=== PATIENT | female | born 1965 | race Caucasian/White ===

== ENCOUNTER 2016-09-05 05:53 | Observation (INO) | payer OTHER ==
[~2016-09-05] VITALS: Ht 154.9 cm; Wt 90.6 kg
[2016-09-05] VITALS (20 sets, daily range): BP systolic 105–149; BP diastolic 60–81; PULSE 81–92; RESP 14–25; Ht 154.9 cm; Wt 90.6 kg
[~2016-09-05 05:53] MED LIST: MED FOR HTN
[2016-09-05] MEDS ORDERED: LACTATED RINGER'S 1,000 ML IV SCH (06:00)
[2016-09-05] MEDS ORDERED: EPHEDrine SULFATE 50 MG/5 ML SYG ONE (07:00)
[2016-09-05 07:22] LABS: ABNORMAL IP MESSAGE 1; HEMATOCRIT 25.2 % (37.0-47.0); MEAN CORPUSCULAR HEMOGLOBIN 17.5 pg (29.0-33.0); MEAN CORPUSCULAR HGB CONC 26.6 g/dl (32.0-37.0); MEAN PLATELET VOLUME 8.8 fl (7.4-10.4); NUCLEATED RED BLOOD CELLS% 0.4 /100WBC (0.0-0.0); PLATELET COUNT 535 10^3/UL (140-415); RED BLOOD COUNT 3.82 10^6/ul (4.20-5.40); RED CELL DISTRIBUTION WIDTH 17.6 % (11.5-14.5); WHITE BLOOD COUNT 5.6 10^3/ul (4.8-10.8)
[2016-09-05 07:33] LABS: POSITIVE DIFF @See below
[2016-09-05 07:37] LABS: HEMOGLOBIN 6.7 g/dl (12.0-16.0)
[2016-09-05 07:45] LABS: ALBUMIN 3.9 g/dl (3.3-4.9); ALBUMIN/GLOBULIN RATIO 0.81; BILIRUBIN,INDIRECT 0.3 mg/dl (0-1.1); BILIRUBIN,TOTAL 0.3 mg/dl (0.2-1.3); TOTAL PROTEIN 8.7 g/dl (6.1-8.1)
[2016-09-05 08:02] LABS: CREATININE 0.51 mg/dl (0.44-1.00)
--- NOTE | 2016-09-05 10:24 | OPR ---
Date/Time of Note Date/Time of Note DATE: 09/05/16 TIME: 10:22 Operative Report Preoperative Diagnosis Abnormal Uterine Bleeding Postoperative Diagnosis Same Operation/Procedure Performed Dilation and Curettage Surgeon: JELANI FRIED MD Anesthesia: general Estimated Blood Loss: minimal Specimens Endocervical curetting and endometrial curetting Complications: None JELANI FRIED MD Sep 05, 2016 10:24
[2016-09-05] MEDS ORDERED: FENTAnyl 50 MCG/ML VIAL IV PRN (10:30)
[2016-09-05] MEDS ORDERED: HYDROmorphONE (0.2 MG/ML) 10ML SYG IV PRN (10:30)
[2016-09-05] MEDS ORDERED: DIPHENHYDRAMINE 50 MG INJ IV PRN (10:30)
[2016-09-05] MEDS ORDERED: PROCHLORPERAZINE 10 MG INJ IV PRN (10:30)
[2016-09-05] MEDS ORDERED: MEPERIDINE 25 MG INJ IV PRN (10:30)
[2016-09-05] MEDS ORDERED: OXYCODONE/ACETAMINOPHEN (5/325) TAB PO PRN (10:30)
[2016-09-05] MEDS ORDERED: ONDANSETRON 4 MG INJ IV PRN (10:30)
[2016-09-05 10:56] LABS: ANISOCYTOSIS 3+ (0-0); EOSINOPHILS % (M) 9 % (0-7); GIANT THROMBO% (M) 7 % (0-0); HYPOCHROMASIA 3+ (0-0); MICROCYTOSIS 3+ (0-0); MONOCYTES % (M) 4 % (0-11); PLATELET ESTIMATE INCREASED; POLYCHROMASIA 3+ (0-0)
[2016-09-05 11:40] LABS: ABNORMAL IP MESSAGE 1; BASOPHILS % 0.6 % (0.0-2.0); EOSINOPHILS # 0.4 10^3/ul (0.0-0.5); EOSINOPHILS % 7.6 % (0.0-7.0); HEMATOCRIT 25.6 % (37.0-47.0); HEMOGLOBIN 7.1 g/dl (12.0-16.0); LYMPHOCYTES # 2.2 10^3/ul (0.8-2.9); LYMPHOCYTES % 39.7 % (15.0-51.0); MEAN CORPUSCULAR HGB CONC 27.7 g/dl (32.0-37.0); MEAN CORPUSCULAR VOLUME 68.4 fl (82.0-101.0); MEAN PLATELET VOLUME 8.9 fl (7.4-10.4); MONOCYTE # 0.4 10^3/ul (0.3-0.9); MONOCYTES % 7.6 % (0.0-11.0); NEUTROPHIL # 2.4 10^3/ul (1.6-7.5); NEUTROPHILS % 43.9 % (39.0-77.0); PLATELET COUNT 470 10^3/UL (140-415); RED BLOOD COUNT 3.74 10^6/ul (4.20-5.40); RED CELL DISTRIBUTION WIDTH 19.3 % (11.5-14.5); WHITE BLOOD COUNT 5.4 10^3/ul (4.8-10.8)
[2016-09-05 11:41] LABS: POSITIVE DIFF @See below
--- NOTE | 2016-09-06 05:42 | PREOPHP ---
DATE OF ADMISSION: 09/05/2016 HISTORY OF PRESENT ILLNESS: This is a 50-year-old female, 2, para 2, last menstrual period August 21, 2016, resented with history of heavy menstrual periods. PAST MEDICAL HISTORY: Unremarkable. PAST SURGICAL HISTORY: Shoulder surgery. FAMILY HISTORY: Hypertension. ALLERGIES: NO KNOWN ALLERGIES. PHYSICAL EXAMINATION: VITAL SIGNS: Patient is afebrile. Vital signs stable. HEAD, NECK, AND CHEST: Within normal limits. ABDOMEN: Soft, nontender, and nondistended. PELVIC: Uterus is enlarged. NEUROLOGIC: Within normal limits. WORKUP ON ADMISSION: Included a CBC which gave a hemoglobin of 6.7. IMPRESSION: 1. Abnormal uterine bleeding. 2. Severe anemia. PLAN: The plan is admit. Transfuse 1 unit of packed red blood cells and then dilatation and curettage. The risks, benefits, and alternatives of the procedure and blood transfusion were explained to the patient. The patient said she understood and gave informed consent for receiving a blood transfusion and having the procedure. Dictated By: Jet Lal MD /deyvi/april /Document#: [id number]
--- NOTE | 2016-09-06 05:47 | OPR ---
DATE OF OPERATION: 09/05/2016 PREOPERATIVE DIAGNOSIS: Abnormal uterine bleeding. POSTOPERATIVE DIAGNOSIS: Same. Operation endocervical curettage, dilation and endometrial curettage. SURGEON: Dr. Lal. ANESTHESIA: General. Anesthesiologist Dr. Goetz. OPERATION PERFORMED: Patient was taken to the operating room, placed on the operating table in supine position after adequate anesthesia was given. The patient was placed in dorsal lithotomy position and there was prepared and draped in the usual sterile fashion. The spectrum was placed inside the vagina and the anterior lip of the cervix. Using a Kevorkian curette, endocervical curettage was performed. Specimen obtained was sent to pathology. Next, using cervical dilators, cervix was dilated using a sharp curette. Endometrial curettage was performed. Specimen obtained was sent to pathology. All the instruments were removed. Adequate hemostasis was assured. The patient tolerated the procedure well. Patient was awakened from anesthesia and transferred to room stable in condition. ESTIMATED BLOOD LOSS: Minimal. COMPLICATIONS: None. Dictated By: Jet Lal MD /deyvi/perry /Document#: [id number]
--- NOTE | 2016-09-06 09:01 | RADRPT ---
Vent Rate: 79 bpm RR Interval: 0 msec PA Interval: 138 msec QRS Duration: 80 msec QT Interval: 390 msec QTC Interval: 447 msec P-R-T [place]: 23 - 23 - 31 degrees Normal sinus rhythm Low voltage QRS Borderline ECG Electronically Signed By: Jim Wilder [id number]
[2016-09-06] MEDS ORDERED: PROPOFOL 20 ML ONE (18:02)
[2016-09-06] MEDS ORDERED: LIDOCAINE 2% (SDV) 5 ML INJ ONE (18:02)
[2016-09-06] MEDS ORDERED: FENTAnyl 50 MCG/ML VIAL ONE (18:02)
[2016-09-06] MEDS ORDERED: MIDAZOLAM 1 MG/ML 2 ML INJ ONE (18:02)
[2016-09-06] MEDS ORDERED: FAMOTIDINE 20 MG INJ ONE (18:02)
[2016-09-06] MEDS ORDERED: DEXAMETHASONE 4 MG/ML 1 ML INJ ONE (18:02)
[2016-09-06] MEDS ORDERED: ONDANSETRON 4 MG INJ ONE (18:02)
[2016-09-06] MEDS ORDERED: CEFAZOLIN 1 GM INJ ONE (18:02)
== END 2016-09-05 12:30 | disposition home or self-care (01) ==
LOC: SDS 05:53 → PP2 08:13 → REC 10:09
PROVIDERS: ADMIT Obstetrics & Gynecology; ATTEND Obstetrics & Gynecology
DX: N84.0 Polyp of corpus uteri (principal); N87.9 Dysplasia of cervix uteri, unspecified; N93.9 Abnormal uterine and vaginal bleeding, unspecified; D64.9 Anemia, unspecified; I10 Essential (primary) hypertension; E66.9 Obesity, unspecified; Z68.37 Body mass index [BMI] 37.0-37.9, adult
CPT/HCPCS: 36430; 58120; 80053; 84703; 85025; 86850; 86900; 86901; 86920; 88305; 93005; P9016; Z7500; Z7512; Z7610; G0378; J0690; J1100; J2250; J2405; J3010

== ENCOUNTER 2016-12-20 08:27 | Observation (INO) | END 2016-12-22 16:46 | disposition home or self-care (01) | DX: N92.1 Excessive and frequent menstruation with irregular cycle (principal); D25.9 Leiomyoma of uterus, unspecified; E66.01 Morbid (severe) obesity due to excess calories; Z68.35 Body mass index [BMI] 35.0-35.9, adult | CPT/HCPCS: 36430; 58544; 80048; 80053; 84703; 85025; 86850; 86900; 86901; 86920; 87086; 88305; J0690; J1100; J1170; J1885; J2250; J2270; J2405; J3010; J3480; J7030; J7120; P9016; Z7500; Z7512; Z7610 ==

== ENCOUNTER 2018-09-06 17:11 | Emergency (ER) | payer OTHER ==
[~2018-09-06] VITALS: Ht 154.9 cm; Wt 88.9 kg
[2018-09-06 17:47] VITALS: Ht 154.9 cm; Wt 88.9 kg
--- NOTE | 2018-09-06 18:52 | ERD ---
ER Documentation Chief Complaint Chief Complaint Referred by PCP for lower abdominal pain r/o diverticulitis HPI Patient is a 52-year-old female presenting to the ED from her primary care provider Dr. Brittny Sanchez who has concerns for diverticulitis. The patient is presenting afebrile, pulse 106, BP 162/98. The patient states she has left lower abdominal pain and is been going on for the past few days. Patient denies nausea vomiting diarrhea. Patient denies recent surgeries. Patient states her only past medical his diabetes. Patient states this is never happened to her before ROS All systems reviewed and are negative except as per history of present illness. Medications Home Meds Active Scripts Lactobacillus Rhamnosus* (Culturelle*) 1 Each Cap.sprink, 1 CAP PO BID for 30 Days, CAP Prov:ANNA CORTEZ PA-C 09/06/18 Psyllium Seed* (Metamucil* Powder) 1,040 Gm Powder, 10 GM PO TID for 10 Days, EA Prov:ANNA CORTEZ PA-C 09/06/18 Metronidazole* (Flagyl*) 500 Mg Tablet, 500 MG PO TID for 7 Days, TAB Prov:ANNA CORTEZ PA-C 09/06/18 Ciprofloxacin Hcl* (Ciprofloxacin Hcl*) 500 Mg Tablet, 500 MG PO BID for 7 Days, TAB Prov:ANNA CORTEZ PA-C 09/06/18 Allergies Allergies: Coded Allergies: No Known Allergy (Unverified , 12/20/16) PMhx/Soc History of Surgery: Yes (arm sx) Anesthesia Reaction: No Hx Neurological Disorder: No Hx Respiratory Disorders: No Hx Cardiac Disorders: No Hx Psychiatric Problems: No Hx Miscellaneous Medical Probl: No Hx Alcohol Use: No Hx Substance Use: No Hx Tobacco Use: No Smoking Status: Never smoker FmHx Family History: diabetes Physical Exam Vitals Vital Signs Date Temp Pulse Resp B/P (MAP) Pulse Ox O2 O2 Flow FiO2 Time Delivery Rate 09/06/18 98.4 104 16 156/107 98 Room Air 21:06 (123) 09/06/18 98.4 106 16 162/98 97 17:47 (119) Physical Exam GENERAL: The patient is well-appearing, well-nourished, in no acute distress HEENT: Atraumatic. Conjunctivae are pink. Pupils equal, round, and reactive to light. There is no scleral icterus. Tympanic membranes clear bilaterally. Oropharynx clear. No nystagmus or photophobia. NECK: C-spine is soft and supple. There is no meningismus. There is no cervical lymphadenopathy. CHEST: Clear to auscultation bilaterally. There are no rales, wheezes or rhonchi. HEART: Regular rate and rhythm. No murmurs, clicks, rubs or gallops. ABDOMEN: Left lower quadrant pain on palpation. BACK: No midline or flank tenderness. Result Diagram: 09/06/18185109/06/181851 Results 24 hrs Laboratory Tests Test 09/06/18 18:52 White Blood Count 11.6 10^3/ul Red Blood Count 4.86 10^6/ul Hemoglobin 13.4 g/dl Hematocrit 41.5 % Mean Corpuscular Volume 85.4 fl Mean Corpuscular Hemoglobin 27.6 pg Mean Corpuscular Hemoglobin Concent 32.3 g/dl Red Cell Distribution Width 13.8 % Platelet Count 413 10^3/UL Mean Platelet Volume 9.2 fl Immature Granulocytes % 0.400 % Neutrophils % 71.4 % Lymphocytes % 19.7 % Monocytes % 5.9 % Eosinophils % 2.2 % Basophils % 0.4 % Nucleated Red Blood Cells % 0.0 /100WBC Immature Granulocytes # 0.050 10^3/ul Neutrophils # 8.2 10^3/ul Lymphocytes # 2.3 10^3/ul Monocytes # 0.7 10^3/ul Eosinophils # 0.3 10^3/ul Basophils # 0.1 10^3/ul Nucleated Red Blood Cells # 0.0 10^3/ul Urine Color YELLOW Urine Clarity CLEAR Urine pH 7.0 Urine Specific [place] 1.025 Urine Ketones NEGATIVE mg/dL Urine Nitrite NEGATIVE mg/dL Urine Bilirubin NEGATIVE mg/dL Urine Urobilinogen NEGATIVE mg/dL Urine Leukocyte Esterase NEGATIVE [place]/ul Urine Hemoglobin NEGATIVE mg/dL Urine Glucose NEGATIVE mg/dL Urine Total Protein NEGATIVE mg/dl Sodium Level 142 mmol/L Potassium Level 3.6 mmol/L Chloride Level 106 mmol/L Carbon Dioxide Level 31 mmol/L Anion Gap 5 Blood Urea Nitrogen 13 mg/dl Creatinine 0.58 mg/dl Est Glomerular Filtrat Rate mL/min > 60 mL/min Glucose Level 124 mg/dl Calcium Level 9.3 mg/dl Current Medications Medications Dose Sig/Jenny Start Time Status Last (Trade) Ordered Route PRN Stop Time Admin Dose Reason Admin Sodium 1,000 ml @ Q1H ONCE 09/06/18 DC 09/06/18 Chloride 1,000 mls/hr IV 19:00 19:10 09/06/18 19:59 Morphine 4 mg ONCE STAT 09/06/18 DC 09/06/18 Sulfate IV 18:56 19:08 (morphine) 09/06/18 18:57 IV Flush 10 ml STK-MED 09/06/18 DC (NS 10 ml) ONCE .ROUTE 21:05 09/06/18 21:06 Sodium 100 ml @ ud STK-MED 09/06/18 DC Chloride ONCE .ROUTE 21:05 09/06/18 21:06 Iohexol 150 ml STK-MED 09/06/18 DC (Omnipaque ONCE .ROUTE 21:05 300mg/ ml) 09/06/18 21:06 Procedures/MDM ED course: The patient was stable throughout the ED course. The patient and/or family informed of laboratory and diagnostic imaging results throughout the ED course. Diagnostic imaging: Read by radiologist PROCEDURE: CT abdomen and pelvis with and without contrast. CLINICAL INDICATION: Abdominal pain. TECHNIQUE: CT scan of the abdomen and pelvis with contrast was performed on a multi-detector high-resolution CT scanner. The patient was scanned before and after the uncomplicated administration of 90 cc of Omnipaque-300 intravenous contrast. Coronal and sagittal reformatted images were obtained from the axial source images. Images were reviewed on a high-resolution PACS workstation. DICOM images are available. One or more of the following dose reduction techniques were used: - Automated exposure control. - Adjustment of the mA and/or kV according to patient size. - Use of iterative reconstruction technique. Exam CTD/vol = 20.49 mGy. Total exam DLP = 2558.81 mGy-cm. COMPARISON: None. FINDINGS: Evaluation of the lung bases demonstrates minimal bibasilar atelectasis. Abdomen: The liver is normal in size. There is no focal mass or dilatation of the biliary tree. The gallbladder is not distended. The spleen, pancreas and bilateral adrenal glands are within normal limits. Bilateral kidneys are normal in size with symmetric enhancement. There is no radiopaque renal or ureteral calculus identified. There is no focal mass, hydronephrosis or hydroureter. There is no retroperitoneal adenopathy. The abdominal aorta is of normal caliber. There is diverticulosis of the sigmoid colon with mild to moderate thickening and stranding involving the proximal sigmoid colon. There is no bowel obstruction or free air. A normal appendix is identified. There is no ascites. Pelvis: The bladder is unremarkable. The uterus and adnexa are within normal limits. There is no significant pelvic adenopathy or free fluid. Evaluation of the osseous structures demonstrates no suspicious lytic or blastic lesion. IMPRESSION: Sigmoid diverticulosis with mild to moderate diverticulitis of the proximal sigmoid colon Medications given in ER: Normal saline Morphine Patient tolerated medication well with no adverse reactions. Patient reported improvement in pain. Medical decision making Patient is 52-year-old female sent over by her PCP for possible diverticulitis. Patient had left lower abdominal pain on examination. Patient is afebrile and white count was only mildly elevated. Patient CT scan showed sigmoid diverticulosis with moderate diverticulitis of the proximal sigmoid colon. At this time I feel comfortable treating the patient outpatient with antibiotics Cipro and Flagyl. I am also sending the patient home with probiotics and Metamucil to help alleviate side effects of the antibiotics. I advised the patient that if her symptoms worsen she needs to return the ER immediately. Advised her that she should be looking out for worsening pain fever chills or any discomfort. Advised the patient she should follow-up with her primary care provider in 1 to 2 days regarding this visit. At this time I have low suspicion for sepsis, toxic megacolon, appendicitis, abdominal abscess. The patient feels comfortable with the treatment plan. All questions were answered upon discharge and the patient is in agreement to the treatment plan Prescription for home: Cipro Flagyl Metamucil Probiotics I have discussed with the patient proper use and common side effects to expert with the medication . I advised the patient/family to speak with the phar macist dispensing the medication to be advised of any potential drug interactions with other medication or supplements they may be taking. Discharge: At this time, patient is stable for discharge and outpatient management. I have instructed the patient to follow-up with his\her primary care physician in 1 to 2 days. I have discussed with the patient the possibility of needing to see a specialist for further work-up and imaging studies if symptoms persist. I have instructed the patient to promptly return to the ER for any new or worsening symptoms including increased pain, fever, nausea, vomiting, weakness or LOC. The patient and\or family expressed understanding of and agreement with this plan. All questions were answered. Home care instructions were provided. Disclaimer: Inadvertent spelling and grammatical errors are likely due to EHR\dictation software use and do not reflect on the overall quality of patient care. Also, please note that the electronic time recorded on the note does not necessarily reflect the actual time of the patient encounter. ED course: The patient was stable throughout the ED course. The patient and/or family informed of laboratory and diagnostic imaging results throughout the ED course. EKG: Read by {} attending physician. EKG shows normal sinus rhythm at rate of {} No arrhythmias, acute ST elevations or T wave changes were noted. Diagnostic imaging: Read by radiologist {} Procedures: None Medications given in ER: None Patient tolerated medication well with no adverse reactions. Patient reported improvement in pain. Medical decision making: Prescription for home: I have discussed with the patient proper use and common side effects to expert with the medication . I advised the patient/family to speak with the armacist dispensing the medication to be advised of any potential drug interactions with other medication or supplements they may be taking. Discharge: At this time, patient is stable for discharge and outpatient management. I have instructed the patient to follow-up with his\her primary care physician in 1 to 2 days. I have discussed with the patient the possibility of needing to see a specialist for further work-up and imaging studies if symptoms persist. I have instructed the patient to promptly return to the ER for any new or worsening symptoms including increased pain, fever, nausea, vomiting, weakness or LOC. The patient and\or family expressed understanding of and agreement with this plan. All questions were answered. Home care instructions were provided. Disclaimer: Inadvertent spelling and grammatical errors are likely due to EHR\dictation software use and do not reflect on the overall quality of patient care. Also, please note that the electronic time recorded on the note does not necessarily reflect the actual time of the patient encounter. Departure Diagnosis: Primary Impression: Abdominal pain Abdominal location: left lower quadrant Qualified Codes: R10.32 - Left lower quadrant pain Additional Impression: Diverticulitis Condition: Stable ANNA CORTEZ PA-C Sep 06, 2018 18:52
[2018-09-06] MEDS ORDERED: morphine 4 MG/ML VIAL IV STA (18:56)
[2018-09-06] MEDS ORDERED: SOD CHLORIDE 0.9% 1,000 ML IV ONE (19:00)
[2018-09-06] MEDS ORDERED: LACT1CAP57 PO (21:05)
[2018-09-06] MEDS ORDERED: SOD CHLORIDE 0.9% 100 ML ONE (21:05)
[2018-09-06] MEDS ORDERED: CIPR500T4 PO (21:05)
[2018-09-06] MEDS ORDERED: PSYL1040 PO (21:05)
[2018-09-06] MEDS ORDERED: METR500T PO (21:05)
[2018-09-06] MEDS ORDERED: IOHEXOL 300MG/ML 150 ML BTL ONE (21:05)
[2018-09-06 21:06] VITALS: BP 156/107; PULSE 104; RESP 16
== END 2018-09-06 21:16 | disposition home or self-care (01) ==
LOC: FTE 17:11
DX: K57.32 Diverticulitis of large intestine without perforation or abscess without bleeding (principal)
CPT/HCPCS: 74178; 80048; 81003; 85025; J2270; J7030; Q9967; 36415; 96361; 96374